=== PATIENT | female | born 1980 ===

== ENCOUNTER 2019-09-04 11:26 | Outpatient (REF) | payer MEDICAID, SELFPAY ==
[2019-09-04 21:32] LABS: Anion Gap 8.8 mmol/L (3-11); BUN 18 mg/dL (7-18); CO2 28.2 mmol/L (21.0-32.0); CREATININE 0.67 mg/dL (0.55-1.02); Calcium 9.3 mg/dL (8.5-10.1); Chloride 103 mmol/L (98-107); Glucose 85 mg/dL (74-106); Potassium 4.2 mmol/L (3.5-5.1); Sodium 140 mmol/L (136-145)
[2019-09-04 21:59] LABS: Hemoglobin A1C 5.5 % (4.5-6.2)
== END 2019-09-04 11:46 ==
LOC: NCHCN 11:26
PROVIDERS: PCP Family Medicine; Visit Provider Nurse Practitioner Family
DX: R73.03 Prediabetes (principal); I10 Essential (primary) hypertension
CPT/HCPCS: 80048; 83036

== ENCOUNTER 2020-06-10 21:25 | Outpatient (REF) | payer MEDICAID, SELFPAY ==
[2020-06-10 21:16] LABS: BUN 16 mg/dL (7-18); CREATININE 0.77 mg/dL (0.55-1.02); Calcium 9.4 mg/dL (8.5-10.1); Chloride 101 mmol/L (98-107); Glucose 110 mg/dL (74-106); Potassium 3.8 mmol/L (3.5-5.1); Sodium 138 mmol/L (136-145)
[2020-06-10 21:48] LABS: ESR 16 mm/hr (0-20)
== END 2020-06-10 21:45 ==
LOC: NCHCN 21:25
PROVIDERS: PCP Family Medicine; Visit Provider Nurse Practitioner Family
DX: I10 Essential (primary) hypertension (principal); M25.561 Pain in right knee; M25.562 Pain in left knee; M25.571 Pain in right ankle and joints of right foot; M25.572 Pain in left ankle and joints of left foot
CPT/HCPCS: 80048; 85652; 86140

== ENCOUNTER 2021-05-15 13:08 | Outpatient (REF) | payer MEDICAID, SELFPAY ==
[2021-05-15 21:08] LABS: Anion Gap 6.6 mmol/L (3-11); BUN 16 mg/dL (7-18); CO2 28.4 mmol/L (21.0-32.0); CREATININE 0.7 mg/dL (0.55-1.02); Chloride 103 mmol/L (98-107); Glucose 81 mg/dL (74-106); Potassium 4.3 mmol/L (3.5-5.1); Sodium 138 mmol/L (136-145)
== END 2021-05-15 13:09 | disposition home or self-care (01) ==
LOC: NCHCN 13:08
PROVIDERS: PCP Family Medicine; Visit Provider Nurse Practitioner Family
DX: I10 Essential (primary) hypertension (principal)
CPT/HCPCS: 80048

== ENCOUNTER 2022-04-19 18:31 | Outpatient (REF) | payer MEDICAID, SELFPAY ==
[2022-04-19 21:58] LABS: HGB 12.9 g/dL (11.2-15.7); MCH 30.1 pg (27.0-33.0); MCHC 33.9 % (32.0-36.0); MCV 89 fL (80-95); MPV 10.8 fL (8.0-11.0); Platelet Count 293 10^3/uL (130-400); RBC 4.28 10^6/uL (3.93-5.22); RDW 12.4 % (11.7-14.6); RDW-SD 40.2 fL; WBC 5.91 10^3/uL (4.4-10.8)
[2022-04-19 22:13] LABS: Hemoglobin A1C 5.6 % (<5.7)
[2022-04-19 22:23] LABS: ALT 27 U/L (14-59); AST 26 U/L (15-37); Alkaline Phosphatase 79 U/L (46-116); Anion Gap 8.3 mmol/L (3-11); BUN 19 mg/dL (7-18); Bilirubin, Total 0.4 mg/dL (0.2-1.0); CO2 29.7 mmol/L (21.0-32.0); CREATININE 0.8 mg/dL (0.55-1.02); Calcium 9.3 mg/dL (8.5-10.1); Chloride 101 mmol/L (98-107); Glucose 100 mg/dL (74-106); Potassium 3.9 mmol/L (3.5-5.1); Sodium 139 mmol/L (136-145); Total Protein 8.2 g/dL (6.4-8.2)
[2022-04-20 18:28] LABS: FSH 56.6 mIU/mL (See Note)
== END 2022-04-19 18:32 | disposition home or self-care (01) ==
LOC: NCHCN 18:31
PROVIDERS: PCP Family Medicine; Visit Provider Nurse Practitioner Family
DX: F32.9 Major depressive disorder, single episode, unspecified (principal); I10 Essential (primary) hypertension; R73.03 Prediabetes; N91.5 Oligomenorrhea, unspecified
CPT/HCPCS: 80053; 85027; 83001; 83036; 84443

== ENCOUNTER 2023-09-15 20:54 | Outpatient (REF) | payer MEDICAID, SELFPAY ==
[2023-09-15 15:14] LABS: HGB 13.2 g/dL (11.2-15.7); MCH 30.8 pg (27.0-33.0); MCHC 34.7 % (32.0-36.0); MCV 89 fL (80-95); MPV 10.3 fL (8.0-11.0); Platelet Count 318 10^3/uL (130-400); RBC 4.28 10^6/uL (3.93-5.22); RDW 12.2 % (11.7-14.6); RDW-SD 39.4 fL; WBC 5.88 10^3/uL (4.4-10.8)
[2023-09-15 15:17] LABS: ESR 25 mm/hr (0-20)
[2023-09-15 15:28] LABS: Hemoglobin A1C 5.7 % (<5.7)
[2023-09-15 15:34] LABS: ALT 34 U/L (14-59); AST 29 U/L (15-37); Albumin 3.9 g/dL (3.4-5.0); Alkaline Phosphatase 72 U/L (46-116); Anion Gap 8.2 mmol/L (3-11); BUN 24 mg/dL (7-18); Bilirubin, Total 0.4 mg/dL (0.2-1.0); C-Reactive Protein 0.72 mg/dL (0.0-0.3); CO2 28.8 mmol/L (21.0-32.0); CREATININE 0.9 mg/dL (0.55-1.02); Calculated LDL 164 mg/dL (<100); Chloride 99 mmol/L (98-107); Cholesterol 257 mg/dL (<200); Estimated GFR 81.35 (mL/min/1.73m2); Glucose 111 mg/dL (74-106); HDL Cholesterol 58 mg/dL (40-60); Potassium 4.3 mmol/L (3.5-5.1); Sodium 136 mmol/L (136-145); Total Protein 8.2 g/dL (6.4-8.2); Triglyceride 179 mg/dL (<150)
[2023-09-16 09:49] LABS: Cyclic Citrullinated Peptide <2.5 U/mL (<5.0)
[2023-09-16 17:20] LABS: ANA Interpretation Negative (Negative)
== END 2023-09-15 20:55 | disposition home or self-care (01) ==
LOC: NCHCN 20:54
PROVIDERS: PCP Family Medicine; Visit Provider Nurse Practitioner Family
DX: M13.0 Polyarthritis, unspecified (principal); R73.03 Prediabetes; R70.0 Elevated erythrocyte sedimentation rate; R79.89 Other specified abnormal findings of blood chemistry
CPT/HCPCS: 80053; 80061; 85027; 85652; 86200; 83036; 86038; 86140

== ENCOUNTER 2024-12-06 13:57 | Outpatient (REF) | payer MEDICAID, SELFPAY ==
[2024-12-06 21:25] LABS: Anion Gap 5.4 mmol/L (3-11); BUN 18 mg/dL (7-18); CO2 32.6 mmol/L (21.0-32.0); CREATININE 0.9 mg/dL (0.55-1.02); Calcium 9.3 mg/dL (8.5-10.1); Calculated LDL 157 mg/dL (<100); Chloride 105 mmol/L (98-107); Cholesterol 249 mg/dL (<200); Estimated GFR 80.84 (mL/min/1.73m2); Glucose 97 mg/dL (74-106); HDL Cholesterol 77 mg/dL (>or=50); Potassium 4.2 mmol/L (3.5-5.1); Sodium 143 mmol/L (136-145); Triglyceride 75 mg/dL (<150)
[2024-12-06 21:54] LABS: Hemoglobin A1C 5.7 % (<5.7)
== END 2024-12-06 13:58 | disposition home or self-care (01) ==
LOC: NCHCN 13:57
PROVIDERS: PCP Family Medicine; Visit Provider Nurse Practitioner Family
DX: Z00.00 Encounter for general adult medical examination without abnormal findings (principal)
CPT/HCPCS: 80048; 80061; 83036

== ENCOUNTER 2024-12-13 09:32 | Outpatient (REF) | payer MEDICAID, SELFPAY ==
--- NOTE | 2024-12-13 08:30 | PAPFT_PTH ---
PATIENT: Carmen Leonardo LOC: [facility] U#:[id number] AGE/SX: 44/F ROOM: RE12/13/[address]: Berta Bianchi : 1980 BED: DIS: 12/13/2024 SPEC #: [id number] RECD: 12/13/24 18:04 STATUS: MARGRET REIsela #: [id number] JOSE ANGEL: 12/13/24 08:[address]: Berta Kingsley DEPT: [facility] Cytology RECD BY: Anna Box ENTERED: 12/13/24 18:04 SP TYPE: PAPFT NAOMI DR: Alexandre Luna Tissues: 1 - CX/ENDOCX FOR PAP SMEARS Procedures: PAP THIN PREP/[facility] Screening HPV DNA PROBE Comments: [id number] (HPV 16 & 18/45)
== END 2024-12-13 09:33 | disposition home or self-care (01) ==
LOC: NCHCN 09:32
PROVIDERS: PCP Family Medicine; Visit Provider Nurse Practitioner Family
DX: Z11.51 Encounter for screening for human papillomavirus (HPV) (principal); Z01.419 Encounter for gynecological examination (general) (routine) without abnormal findings
CPT/HCPCS: 88142; 87624